=== PATIENT | female | born 1995 | race American Indian/Alaskan Native ===

== ENCOUNTER 2017-07-09 17:33 | Emergency (ER) | payer SELFPAY ==
[2017-07-09 17:43] VITALS: BP 110/69
[2017-07-09] MEDS ORDERED: DECADRON IM ONE (21:13)
[2017-07-09] MEDS ORDERED: MOTRIN PO ONE (21:14)
[2017-07-09] MEDS ORDERED: BICILLIN L-A IM ONE (21:14)
--- NOTE | 2017-07-09 21:49 | Emergency Department Report ---
ED ENT HPI - General Chief complaint: Weakness Stated complaint: FLU LIKE SYMPTOMS Time Seen by Provider: 07/09/17 21:13 Source: patient Mode of arrival: Ambulatory Limitations: No Limitations - History of Present Illness Initial comments: 21F PMH none p/w complaint: sore throat Onset/Timin -: week(s) Location: throat Severity: moderate - Related Data Previous Rx's Medication Instructions Recorded Last Taken Type Dextromethorphan/Benzocaine 1 each PO Q4H PRN #1 box 07/09/17 Unknown Rx [Cepacol Sorethroat-Cough Rose] Ibuprofen [Motrin] 800 mg PO Q8HR PRN #30 tablet 07/09/17 Unknown Rx Allergies Allergy/AdvReac Type Severity Reaction Status Date / Time No Known Allergies Allergy Verified 07/09/17 17:38 ED Dental HPI - General Chief complaint: Weakness Stated complaint: FLU LIKE SYMPTOMS Time Seen by Provider: 07/09/17 21:13 Source: patient Mode of arrival: Ambulatory Limitations: No Limitations - Related Data Previous Rx's Medication Instructions Recorded Last Taken Type Dextromethorphan/Benzocaine 1 each PO Q4H PRN #1 box 07/09/17 Unknown Rx [Cepacol Sorethroat-Cough Rose] Ibuprofen [Motrin] 800 mg PO Q8HR PRN #30 tablet 07/09/17 Unknown Rx Allergies Allergy/AdvReac Type Severity Reaction Status Date / Time No Known Allergies Allergy Verified 07/09/17 17:38 ED Review of Systems ROS: Stated complaint: FLU LIKE SYMPTOMS Other details as noted in HPI ED Past Medical Hx - Past Medical History Previous Medical History?: No - Surgical History Past Surgical History?: No - Social History Smoking Status: Never Smoker Substance Use Type: None - Medications Home Medications: Home Medications Medication Instructions Recorded Confirmed Last Taken Type Dextromethorphan/Benzocaine 1 each PO Q4H PRN #1 box 07/09/17 Unknown Rx [Cepacol Sorethroat-Cough Rose] Ibuprofen [Motrin] 800 mg PO Q8HR PRN #30 tablet 07/09/17 Unknown Rx ED Physical Exam - General Limitations: No Limitations General appearance: alert, in no apparent distress - Head Head exam: Present: atraumatic, normocephalic - Eye Eye exam: Present: normal appearance, PERRL, EOMI - ENT ENT exam: Present: mucous membranes moist - Expanded ENT Exam Expanded Throat exam: Positive: tonsillar erythema (bilateral tonsillar erythema on exam , no exudates, uvula is midline) - Neck Neck exam: Present: normal inspection - Respiratory Respiratory exam: Present: normal lung sounds bilaterally. Absent: respiratory distress - Cardiovascular Cardiovascular Exam: Present: regular rate, normal rhythm. Absent: systolic murmur, diastolic murmur, rubs, gallop - GI/Abdominal GI/Abdominal exam: Present: soft, normal bowel sounds - Extremities Exam Extremities exam: Present: normal inspection - Back Exam Back exam: Present: normal inspection - Neurological Exam Neurological exam: Present: alert, oriented X3 - Psychiatric Psychiatric exam: Present: normal affect, normal mood - Skin Skin exam: Present: warm, dry, intact, normal color. Absent: rash ED Course Vital Signs 07/09/17 07/09/17 17:38 21:39 Temperature 99.1 F Pulse Rate 105 H Respiratory 16 18 Rate Blood Pressure 110/69 O2 Sat by Pulse 98 Oximetry ED Medical Decision Making - Medical Decision Making A/P: Pharyngitis 1- treated empirically with Bicillin 2-Motrin when necessary, throat lozenges when necessary 3-follow up with primary care doctor 4- patient tolerating by mouth fluid and food before discharge, vital signs stable for discharge Critical care attestation.: If time is entered above; I have spent that time in minutes in the direct care of this critically ill patient, excluding procedure time. ED Disposition Clinical Impression: Strep throat Pharyngitis Qualifiers: Pharyngitis/tonsillitis etiology: unspecified etiology Qualified Code(s): J02.9 - Acute pharyngitis, unspecified Disposition: DC- TO HOME OR SELFCARE Is pt being admited?: No Does the pt Need Aspirin: No Condition: Stable Instructions: Pharyngitis (ED), Fever in Adults (ED) Prescriptions: Dextromethorphan/Benzocaine [Cepacol Sorethroat-Cough Rose] 1 each PO Q4H PRN #1 box PRN Reason: Sore Throat Ibuprofen [Motrin] 800 mg PO Q8HR PRN #30 tablet PRN Reason: Fever Referrals: [facility] - [place]] - 3-5 Days [facility] [Outside] - 3-5 Days Forms: Work/School Release Form(ED) Time of Disposition: 22:04
== END 2017-07-09 22:15 | disposition home or self-care (01) ==
LOC: ED 17:33
DX: J02.0 Streptococcal pharyngitis (principal)
CPT/HCPCS: 87116; 87430; 96372; 99283; J0561; J1100

== ENCOUNTER 2017-08-02 21:06 | Emergency (ER) | payer SELFPAY ==
[2017-08-02 21:29] VITALS: BP 119/70
== END 2017-08-02 21:29 | disposition left against medical advice (07) ==
LOC: ED 21:06
DX: M79.1 Myalgia (principal); Z53.21 Procedure and treatment not carried out due to patient leaving prior to being seen by health care provider